=== PATIENT | male | born 1975 | race Caucasian/White ===

== ENCOUNTER 2018-02-26 09:37 | Emergency (ER) | payer OTHER ==
[2018-02-26 09:57] VITALS: BP 148/79
--- NOTE | 2018-02-26 10:57 | UC ---
Skin Complaint HPI - HPI Summary HPI Summary: 42-year-old male comes in today with a laceration to the tip of his right index finger. It occurred at work. He has finger stuck In precision grinder. He is not bleeding stopped with direct pressure. He has tenderness within the last year. - History of Current Complaint Chief Complaint: UCUpperExtremity Time Seen by Provider: 02/26/18 10:45 Stated Complaint: R INDEX FINGER INJURY Pain Intensity: 7 - Allergy/Home Medications Allergies/Adverse Reactions: Allergies Allergy/AdvReac Type Severity Reaction Status Date / Time No Known Allergies Allergy Verified 02/26/18 09:57 Review of Systems Constitutional: Negative Skin: Other - SEE HPI Eyes: Negative ENT: Negative Respiratory: Negative Cardiovascular: Negative Gastrointestinal: Negative Motor: Negative Neurovascular: Negative Musculoskeletal: Negative Neurological: Negative Psychological: Negative Is Patient Immunocompromised?: No All Other Systems Reviewed And Are Negative: Yes PMH/Surg Hx/FS Hx/Imm Hx Previously Healthy: Yes Other History Of: Negative For: HIV, Hepatitis B, Hepatitis C - Surgical History Surgical History: Yes Surgery Procedure, Year, and Place: ACL reconstruction left knee - Family History Known Family History: Positive: Other Negative: Cardiac Disease, Hypertension, Diabetes - Social History Alcohol Use: Weekly Alcohol Amount: few week Substance Use Type: None Smoking Status (MU): Never Smoked Tobacco Physical Exam Triage Information Reviewed: Yes Appearance: Well-Appearing, No Pain Distress, Well-Nourished Vital Signs: Initial Vital Signs Temp 98.4 F 02/26/18 09:53 Pulse 79 02/26/18 09:53 Resp 18 02/26/18 09:53 BP 148/79 02/26/18 09:53 Pulse Ox 100 02/26/18 09:53 Vital Signs Reviewed: Yes Eye Exam: Normal Eyes: Positive: Conjunctiva Clear Neck exam: Normal Neck: Positive: Supple Respiratory: Positive: No respiratory distress Musculoskeletal Exam: Normal Musculoskeletal: Positive: Strength Intact, ROM Intact Neurological Exam: Normal Neurological: Positive: Alert, Muscle Tone Normal Psychological Exam: Normal Psychological: Positive: Age Appropriate Behavior Skin: Positive: Other - On the pad of the tip of the right index finger there is a 5 mm avulsion laceration. There is still skin covering the avulsed area. It barely attached by a 2 mm attachment. Is not actively bleeding right now. The injury appears shallow and there is no evidence of bony involvement. Fingers full range of motion normal strength no sensation deficit. Course/Dx - Course Course Of Treatment: The injury was cleaned and dressed with antibiotic ointment and a protective dressing by nursing. The injury would not benefit by suturing. If I used through believe it could increase the risk of infection. At this time we'll leave the natural skin overlying the area and do daily dressing changes with antibiotic ointment and protecting the area. Follow-up with primary care doctor if not improving or get rechecked here sooner if worse. - Diagnoses Provider Diagnoses: AVUSION LACERATION RIGHT INDEX FINGER Discharge - Sign-Out/Discharge Documenting (check all that apply): Patient Departure All imaging exams completed and their final reports reviewed: No Studies - Discharge Plan Condition: Stable Disposition: HOME Patient Education Materials: Finger Laceration (ED), Laceration Without Closure (ED) Referrals: Elsy Toth MD [Primary Care Provider] - Additional Instructions: FOLLOW UP WITH YOUR DOCTOR IF NOT COMPLETELY IMPROVED. GET RECHECKED FOR ANY WORSENING OF YOUR CONDITION OR QUESTIONS OR CONCERNS. - Billing Disposition and Condition Condition: STABLE Disposition: Home
== END 2018-02-26 11:06 | disposition home or self-care (01) ==
LOC: UCEAST 09:37
DX: S61.210A Laceration without foreign body of right index finger without damage to nail, initial encounter (principal); W31.89XA Contact with other specified machinery, initial encounter; Y92.9 Unspecified place or not applicable
CPT/HCPCS: 99212; G0463